=== PATIENT | male | born 1975 | race Caucasian/White ===

== ENCOUNTER 2016-09-29 11:16 | Emergency (ER) | payer OTHER ==
[~2016-09-29] VITALS: Ht 170.2 cm; Wt 106.6 kg
--- NOTE | 2016-09-29 11:20 | NUR ---
called to triage, no answer
--- NOTE | 2016-09-29 11:41 | NUR ---
called to triage, no answer
--- NOTE | 2016-09-29 12:00 | NUR ---
PT CAME IN FOR INTERMITENT, NON-RADIATING CHEST PAIN SINCE LAST NIGHT. DENIES TRAUMA. SKIN WNL. VSS. SEEN BY BILINGUAL SECRETARY FOR EVAL. SAFETY AND COMFORT MEASURES PROVIDED. WILL MONITOR.
--- NOTE | 2016-09-29 12:15 | NUR ---
WAREHOUSE CONSULTANT AT FOR BLOOD DRAW.
[2016-09-29] MEDS ORDERED: ASPIRIN 325 MG TABLET ONE (12:17)
--- NOTE | 2016-09-29 12:21 | NUR ---
XRAY AT BS. PT MEDICATED ORDERED.
[2016-09-29 12:25] LABS: BASOPHILS # (AUTO) 0.1 /CMM (0.0-0.2); BASOPHILS % (AUTO) 0.8 % (0.0-2.0); EOSINOPHILS # (AUTO) 0.2 /CMM (0.0-0.7); EOSINOPHILS % (AUTO) 3.4 % (0.0-6.0); HEMATOCRIT 45 % (39-51); LYMPHOCYTES # (AUTO) 2.3 /CMM (0.8-4.8); LYMPHOCYTES % (AUTO) 32.3 % (20.0-44.0); MEAN CORPUSCULAR HEMOGLOBIN 29 PG (26.0-33.0); MEAN CORPUSCULAR HGB CONC 33 g/dl (31.0-36.0); MEAN CORPUSCULAR VOLUME 87 fL (80-96); MONOCYTES # (AUTO) 0.5 /CMM (0.1-1.30); MONOCYTES % (AUTO) 6.7 % (2.0-12.0); NEUTROPHILS % (AUTO) 56.8 % (43.0-81.0); PLATELET COUNT (AUTO) 198 /CMM (150-450); RDW COEFFICIENT OF VARIATION 12.1 (11.5-15.0); RED BLOOD CELL COUNT(AUTO) 5.22 MIL/uL (4.5-6.0); WHITE BLOOD COUNT (AUTO) 7.1 K/uL (4.3-11.0)
[2016-09-29] MEDS ORDERED: ASPIRIN 325 MG TABLET PO ONE (12:30)
[2016-09-29 12:35] LABS: CALCIUM, SERUM 8.6 mg/dL (8.5-10.1); CARBON DIOXIDE 29 mmol/L (21-32); CHLORIDE 106 mmol/L (98-107); CREATININE 0.8 mg/dL (0.6-1.3); GFR 108 mL/min (>60); GLUCOSE 155 mg/dL (74-106); POTASSIUM 3.8 mmol/L (3.5-5.1); SODIUM SERUM 140 mmol/L (136-145); UREA NITROGEN, BLOOD 10 mg/dL (7-18)
[2016-09-29 12:39] LABS: INR 0.92 (0.87-1.13); PROTHROMBIN TIME 9.6 SECS (9.5-12.7)
[2016-09-29 12:49] LABS: TROPONIN I < 0.017 ng/mL (0.00-0.056)
[2016-09-29 13:05] VITALS: BP 132/75
== END 2016-09-29 13:25 | disposition home or self-care (01) ==
LOC: ER 11:22
DX: M94.0 Chondrocostal junction syndrome [Tietze] (principal); F17.210 Nicotine dependence, cigarettes, uncomplicated
CPT/HCPCS: 36415; 71010-TC; 80048-TC; 83880; 84484-TC; 85025-TC; 85378-TC; 85730-TC; A4606; Z7610